=== PATIENT | female | born 1960 | race Caucasian/White ===

== ENCOUNTER 2018-05-17 21:58 | Emergency (ER) | payer BC, OTHER ==
[2018-05-17 22:41] LABS: Clarity Clear (Clear)
[2018-05-17 22:42] LABS: Bilirubin Negative (Negative); Blood, Urine Small (Negative); Glucose, Urine (Dipstick) Negative (Negative); Leukocyte Negative (Negative); Nitrite Negative (Negative); Protein, Urine (Dipstick) Negative (Neg-Trace); Specific Gravity, Urine 1.025 (1.005-1.030); Urobilinogen 0.2 mg/dL (0.2-1.0); pH, Urine 5.5 (5.0-9.0)
[2018-05-17 22:44] LABS: Bacteria/HPF 1+ HPF (None Seen); Squamous Epithelial 0-3 HPF (0-3); WBC/HPF 0-3 HPF (0-3)
[2018-05-17] MEDS ORDERED: HYDROcodone/Acetaminophen 10/325 mg Tablet ONE (23:01)
[2018-05-17] MEDS ORDERED: Azithromycin 250 MG TAB ONE (23:01)
--- NOTE | 2018-05-18 08:06 | RAD ---
CHEST 2 VIEWS: DATE: 05/17/18. FINDINGS: The heart is normal in size. There is no vascular congestion or edema. There is no major lobar infi ltrate. There is some slight blunting of the right costophrenic angle. I do not know if this is a s mall amount of current fluid or if this is scarring from the past. I have no prior films to compare with. IMPRESSION: Mild blunting of the right costophrenic angle, age indeterminate. POS: HOME
== END 2018-05-17 23:07 | disposition home or self-care (01) ==
LOC: BURERS 21:58
DX: J90 Pleural effusion, not elsewhere classified (principal); F41.9 Anxiety disorder, unspecified; F43.10 Post-traumatic stress disorder, unspecified
CPT/HCPCS: 71046; 81003; 81015

== ENCOUNTER 2018-12-20 22:42 | Emergency (ER) | payer OTHER, SELFPAY ==
[2018-12-20] MEDS ORDERED: Ondansetron PF 4 MG/2 ML Vial ONE (23:46)
--- NOTE | 2018-12-20 23:48 | CT ---
CT HEAD WITHOUT CONTRAST: 12/20/18 Multiple axial tomograms were obtained through the head without IV enhancement. INDICATIONS: Dizziness. Ventricles have normal size and position. There is no evidence of intracranial mass or hemorrhage. Paranasal sinuses are aerated. There is opacification of a right sphenoid air cell noted. IMPRESSION: No acute intracranial abnormality. Mucosa opacification in the right sphenoid sinus is noted. POS: [facility]
[2018-12-20 23:59] LABS: #Basophils 0.1 thou/uL (0.0-0.2); #Eosinphils 0.2 thou/uL (0.0-0.7); #Lymphocytes 3.1 thou/uL (1.20-3.40); #Monocytes 0.8 thou/uL (0.11-0.59); #Neutrophils 7.9 thou/uL (1.40-6.50); %Basophils 0.8 % (0.0-1.0); %Eosinophils 1.7 % (0.0-10.0); %Lymphocytes 25.9 % (21.0-51.0); %Monocytes 6.5 % (0.0-10.0); %Neutrophils 65.2 % (42.0-75.0); Hemoglobin 14.3 g/dL (12.0-16.0); Mean Corpuscular HGB CONC 34.2 g/dL (32.0-36.0); Mean Corpuscular Hemoglobin 31.3 pg (27.0-31.0); Mean Corpuscular Volume 91.5 fL (78.0-98.0); Mean Platelet Volume 8.9 fL (7.4-10.4); Platelet Count 251 thou/uL (130-400); RBC Distribution Width 13.5 % (11.5-14.5); Red Blood Cell (RBC) Count 4.58 mill/uL (4.20-5.40); White Blood Cell (WBC) Count 12.1 thou/uL (4.8-10.8)
[2018-12-21 00:11] LABS: ALT (SGPT) 32 U/L (8-55); AST (SGOT) 27 U/L (5-34); Albumin 4.4 g/dL (3.5-5.0); Alkaline Phosphatase 76 U/L (40-150); Anion Gap 15 mmol/L (10-20); BUN (Urea Nitrogen) 18 mg/dL (9.8-20.1); Bilirubin, Total 0.3 mg/dL (0.2-1.2); Calc. Creatinine Clearance 0 mL/min (70-130); Calcium 9.7 mg/dL (7.8-10.44); Carbon Dioxide 25 mmol/L (22-29); Chloride 108 mmol/L (98-107); Estimated GFR-MDRD 76; Globulin 2.6 g/dL (2.4-3.5); Glucose 119 mg/dL (70-105); Potassium 3.8 mmol/L (3.5-5.1); Sodium 144 mmol/L (136-145)
== END 2018-12-21 00:38 | disposition short-term general hospital (02) ==
LOC: BURERS 22:42
DX: R42 Dizziness and giddiness (principal); F41.9 Anxiety disorder, unspecified; F43.10 Post-traumatic stress disorder, unspecified
CPT/HCPCS: 70450; 80053; 84484; 85025; 93005; 96374; J2405